=== PATIENT | female | born 1970 | race Caucasian/White ===

== ENCOUNTER 2020-02-29 15:32 | Emergency (ER) | payer OTHER, SELFPAY ==
--- NOTE | ~2020-02-29 | XR_ITS ---
EXAMINATION: XR knee LT min 4V DATE: 02/29/2020 16:28 INDICATION: Medial left knee pain TECHNIQUE: Four views of the left knee were obtained. COMPARISON: None. FINDINGS: Alignment is normal. No fracture or osteochondral lesion. Joint spaces are normal with no e rosions. No joint effusion/synovitis. Soft tissues are unremarkable. IMPRESSION: 1. No acute osseous abnormality. Reviewed, dictated and finalized at location A.
--- NOTE | 2020-02-29 15:52 | ED.GENADULT ---
HPI - General Adult General Chief complaint: Extremity Injury, Lower Stated complaint: left knee pain Time Seen by Provider: 02/29/20 16:10 Source: patient Mode of arrival: ambulatory Limitations: no limitations History of Present Illness HPI narrative: 49-year-old female patient presents to the [facility] with complaints of left knee pain. Patient states over the weekend she was on a float trip and states that she was in the river swimming as well as walking on a bunch of rocks and did strain her knee a couple of times but no specific fall or injury that she can remember. Patient feels like her lower leg is numb but she does have history of peripheral neuropathy however she states this type of feeling is new. Patient states most of her pain is mostly on the inner side medial side of the knee. Patient states it hurts when trying to bend the knee. Patient states she got up in the middle the night and could barely walk. Patient states that she did try calling her primary doctor today but was not able to get and so she decided to come here to be seen. Patient states she has been taking Tylenol for the pain. Related Data Home Medications Medication Instructions Recorded Confirmed duloxetine mg PO 02/29/20 gabapentin 02/29/20 Allergies Allergy/AdvReac Type Severity Reaction Status Date / Time No Known Allergies Allergy Verified 09/26/17 14:48 Review of Systems Review of Systems: Narrative: CONSTITUTIONAL: Denies fever, chills, or sweats. EYES: Denies visual changes, redness, or discharge. ENT: Denies rhinorrhea, congestion, sore throat, or otalgia. CARDIOVASCULAR: Denies chest pain, palpitations, or edema. RESPIRATORY: Denies cough or dyspnea. GASTROINTESTINAL: Denies abdominal pain, nausea, vomiting, or diarrhea. GENITOURINARY: Denies dysuria or hematuria. SKIN: Denies rash or itching. MUSCULOSKELETAL: Denies back pain, joint pain, or myalgia. Positive left knee pain NEUROLOGIC: Denies headache, numbness, or weakness. PSYCHIATRIC: Denies anxiety or depression. FOR[facility]LY [facility], LATER [facility] Past Medical History Medical History (Updated 02/29/20 @ 16:47 by LORNA Perez) Anxiety Arthritis Cervical cancer LEEP in 1994 Chronic back pain Depression Fibroids Fibromyalgia GERD (gastroesophageal reflux disease) Hypercholesterolemia Hypertension Opioid use Vicodin 7.5 mg daily Peripheral neuropathy Surgical History Surgical History (Updated 02/29/20 @ 16:01 by LORNA Perez) H/O inguinal hernia repair Family History Family History Other Family history of elevated blood lipids Hypertension Social History Social History Smoking status: Current every day smoker Second hand tobacco smoke exposure: Yes Alcohol intake: current Comments At the time of my signature I agree with nursing past medical history, surgical, social, and family history. There is no relevant family history pertinent to the presenting complaint. Exam Narrative: Exam Narrative: GENERAL: Well-appearing, well-nourished, and in no acute distress. HEAD: Normocephalic, atraumatic. EYES: PERRLA and EOMI. ENT: Nares clear, no rhinorrhea or epistaxis. Mucous membranes moist. NECK: Supple. No lymphadenopathy CHEST: Clear to auscultation. No respiratory distress. HEART: Regular rate and rhythm. No murmur heard. Normal peripheral pulses. ABDOMEN: Soft, nontender, nondistended, normal active bowel sounds. EXTREMITIES: Patient is able to bear weight and ambulate but has increase in pain to the left knee. No surface trauma, STS, or obvious effusion. No overlying erythema or warmth. The L knee is without obvious asymmetry or deformity when compared to the R knee. Patient is unable to do deep knee bend with symmetry, patient is able to fully extend knee, patient has pain with internal and external rotation. No tendernss to palpation of the pa
[2020-02-29 15:58] VITALS: BP 118/84; PULSE 91; RESP 16; TEMP 36.7; O2SAT 99
== END 2020-02-29 16:55 | disposition home or self-care (01) ==
PROVIDERS: Emergency Provider Nurse Practitioner Family; PCP Emergency Medicine
DX: S83.207A Unspecified tear of unspecified meniscus, current injury, left knee, initial encounter (principal); G62.9 Polyneuropathy, unspecified; I10 Essential (primary) hypertension; E78.00 Pure hypercholesterolemia, unspecified; M79.7 Fibromyalgia; Z85.41 Personal history of malignant neoplasm of cervix uteri; K21.9 Gastro-esophageal reflux disease without esophagitis; F17.210 Nicotine dependence, cigarettes, uncomplicated; X50.9XXA Other and unspecified overexertion or strenuous movements or postures, initial encounter
CPT/HCPCS: 73564; 99213; G0463; L1830

== ENCOUNTER 2020-07-20 10:59 | Outpatient (CLI) | payer OTHER, SELFPAY ==
[2020-07-20 12:55] LABS: Hepatitis C Virus Antibody Negative (Negative)
[2020-07-23 07:02] LABS: Rapid Plasma Reagin Non-Reactive (NonReactive)
[2020-07-25 12:16] LABS: HSV 1 IgM Screen Negative (Negative); HSV 2 IgM Screen Negative (Negative)
== END 2020-07-20 11:00 | disposition home or self-care (01) ==
LOC: ANHLAB 11:00
PROVIDERS: PCP Emergency Medicine; Visit Provider Obstetrics & Gynecology
DX: Z11.3 Encounter for screening for infections with a predominantly sexual mode of transmission (principal)
CPT/HCPCS: 36415; 86592; 86695; 86696; 86803

== ENCOUNTER 2020-12-04 10:10 | Emergency (ER) | payer OTHER, SELFPAY ==
[2020-12-04 10:17] VITALS: BP 143/79; PULSE 127; RESP 20; TEMP 36.8; O2SAT 100
--- NOTE | 2020-12-04 10:22 | ED.GENADULT ---
HPI - General Adult General Chief complaint: Back Pain/Injury Stated complaint: INJURED BACK Time Seen by Provider: 12/04/20 10:22 Source: patient and RN notes reviewed Mode of arrival: ambulatory Limitations: no limitations History of Present Illness HPI narrative: 50-year-old female presents with complaints of diffused lower back pain for 1 day. Esme reports working on home deck steps and now has increasing lower back pain. Flexeril, Vicodin 7.5mg (took last one 12/03/2020), and Meloxicam without relief. Denies new injuries or falls. Diffused radiating pain. Denies numbness or tingling. Denies high fever. No upper or lower extremity pain or weakness. Exacerbating factors consist of prolong standing, certain movements, bending. Nausea without vomiting or abdominal pain. Tolerating po intake well. Denies problems with urinating or having a bowel movement, LBM 12/03/2020 per patient and normal. No flank pain or hematuria or dysuria. The patient reports she have not been diagnosed with COVID-19. The patient reports she is not waiting for the results of a COVID-19 lab test. The patient reports she do not have chills, weakness, or fatigue. The patient reports she do not have a new or worsening cough or shortness of breath. Denies chest pain. The patient reports she do not have any rhinorrhea, congestion, sore throat, loss of taste or smell, and diarrhea. Denies recent traveling. Denies concerns for COVID-19 or exposures been home with limited outdoor exposure except for essential household needs and return home. At this time, patient is not suspected of having COVID-19. Some parts of this dictation were generated by voice recognition software and may contain typographical and/or grammatical inaccuracies. Related Data Home Medications Medication Instructions Recorded Confirmed duloxetine mg PO 02/29/20 09/14/20 Allergies Allergy/AdvReac Type Severity Reaction Status Date / Time No Known Allergies Allergy Verified 09/14/20 09:02 Review of Systems Review of Systems: Narrative: CONSTITUTIONAL: Denies fever, chills, sweats. EYES: Denies visual changes, redness, discharge. ENT: Denies rhinorrhea, congestion, sore throat, otalgia. CARDIOVASCULAR: Denies chest pain, palpitations, edema. RESPIRATORY: Denies dyspnea, wheezing, cough. GASTROINTESTINAL: Denies abdominal pain, vomiting, diarrhea. Complains of nausea. GENITOURINARY: Denies dysuria, hematuria, abnormal discharge. SKIN: Denies rash or itching. MUSCULOSKELETAL: Complains of diffused lower back pain, radiating throughout abdomen and legs. Denies joint pain or myalgia. NEUROLOGIC: Denies numbness or focal weakness. PSYCHIATRIC: Denies anxiety or depression. All systems reviewed & are unremarkable except as noted in HPI and below. REPLACED BY [facility] Past Medical History Medical History Anxiety Arthritis Cervical cancer LEEP in 1994 Chronic back pain Depression Fibroids Fibromyalgia GERD (gastroesophageal reflux disease) History of HPV infection History of LEEP (loop electrosurgical excision procedure) of cervix complicating History of miscarriage History of vaginal delivery Hypercholesterolemia Hypertension Opioid use Vicodin 7.5 mg daily Peripheral neuropathy Surgical History Surgical History H/O inguinal hernia repair Family History Family History Other Family history of elevated blood lipids Hypertension Social History Social History Years smoked: 30 Smoking status: Current every day smoker Tobacco type: cigarettes Second hand tobacco smoke exposure: Yes Alcohol intake: current Drinks per week: 2 Substance use: current Substance use type: marijuana Comments At time of signature, agree with
[2020-12-04] MEDS: KETOROLAC (*BKC) 60 MG/2 ML VIAL IM (10:36)
[2020-12-04] MEDS: ONDANSETRON HCL ODT 4 MG TABLET PO (10:38)
== END 2020-12-04 11:07 | disposition home or self-care (01) ==
PROVIDERS: Emergency Provider Nurse Practitioner Family; PCP Emergency Medicine
DX: M54.5 Low back pain (principal); F17.210 Nicotine dependence, cigarettes, uncomplicated; F41.9 Anxiety disorder, unspecified; F32.9 Major depressive disorder, single episode, unspecified; M19.90 Unspecified osteoarthritis, unspecified site; Z85.41 Personal history of malignant neoplasm of cervix uteri; M79.7 Fibromyalgia; K21.9 Gastro-esophageal reflux disease without esophagitis; E78.00 Pure hypercholesterolemia, unspecified; I10 Essential (primary) hypertension; G62.9 Polyneuropathy, unspecified
CPT/HCPCS: 96372; 99213; A9270; G0463; J1885